=== PATIENT | male | born 1985 ===

== ENCOUNTER 2018-06-13 01:10 | Emergency (ER) | payer OTHER, MEDICAID, SELFPAY ==
[2018-06-13 01:10] VITALS: BP 135/88; PULSE 114; RESP 20; TEMP 36.7; O2SAT 99
--- NOTE | 2018-06-13 01:11 | ED.PSYCH ---
HPI - Psych <Jones Lamas DO - Last Filed: 06/13/18 18:15> General Chief Complaint: Psychiatric Symptoms Stated Complaint: SI Time Seen by Provider: 06/13/18 01:11 Source: patient and police Mode of arrival: other (Police) Limitations: no limitations History of Present Illness HPI Narrative: Patient is a 33-year-old male who arrived under the care of the [facility] after they were dispatched to his home to to comments that he was making via text to his ex-girlfriend. The marketing officer told me that it was his ex-girlfriend was the 1 who called 911. Liv stated that when they arrived they found the patient on the floor with puking his young. They also found a belt that was rig to a piece of furniture apparently to be used as a noose. He did admit to drinking 12 beers and smoking marijuana today. He also stated that yesterday he found out that his best friend was killed about a month ago. He also stated that his girlfriend recently broke up with him. He has had and suicidal ideations and depression for a long time he is not currently on any medications. He is not currently under the care of any primary doctor or mental health provider. He has been admitted to the hospital in the past for suicidal ideation. He came voluntarily. Related Data Home Medications Medication Instructions Recorded Confirmed No Known Home Medications 06/13/18 06/13/18 Allergies Allergy/AdvReac Type Severity Reaction Status Date / Time No Known Drug Allergies Allergy Verified 06/13/18 07:39 Review of Systems <DO Saad Mukherjee Last Filed: 06/13/18 18:15> Constitutional Denies headache(s) ENT Ears, Nose, Mouth, and Throat: Denies headache(s) Cardiovascular Denies chest pain and Denies dyspnea Respiratory Denies dyspnea Gastrointestinal Gastrointestinal: Denies abdominal pain Musculoskeletal Denies myalgias and Denies arthralgias Integumentary/Breasts Reports rash Neurologic Reports behavioral changes and Denies headache(s) Psychiatric Denies anxiety, Reports behavioral changes, Reports depression, Denies irritability, Denies homicidal ideation and Reports suicidal ideation Hematologic/Lymphatic Comments: Not on anticoagulation PFSH <DO Saad Mukherjee Last Filed: 06/13/18 18:15> Medical History Depression (Acute) Social History Smoking Status: Never smoker Social History Smoking Status: Never smoker Exam <DO Saad Mukherjee Last Filed: 06/13/18 18:15> Initial Vital Signs Initial Vital Signs: Vital Signs Temperature 98.0 F 06/13/18 01:10 Pulse Rate 114 H 06/13/18 01:10 Respiratory Rate 20 06/13/18 01:10 Blood Pressure 135/88 06/13/18 01:10 Pulse Oximetry 99 06/13/18 01:10 Const General: cooperative, healthy appearing, comfortable, well developed, well groomed and No acute distress HENMT Head: normal to inspection, normocephalic and atraumatic Resp Effort & Inspection: normal respiratory effort Auscultation: clear to auscultation bilaterally Cardio Rate: tachycardic Rhythm: regular rhythm Pulses: radial pulses present Skin Other: Patient with a rash located on his left side and abdomen and back. Well demarcated. No blisters. Also has well-healed scars to his right forearm consistent with prior cutting at times. Neuro General: alert, awake and oriented x3 Extrem General: normal to inspection and capillary refill normal Psych Appearance: grossly normal, well kempt and not disheveled Speech and Movement: speech and movement normal Mood: dysthymic mood Affect: sad Attitude: cooperative Thought Process: normal <Jessie Smith DO - Last Filed: 06/13/18 16:44> Initial Vital Signs Initial Vital Signs: Vital Signs Temperature 98.0 F 06/13/18 01:10 Pulse Rate 114 H 06/13/18 01:10 Respiratory Rate 20 06/13/18 01:10 Blood Pressure 135/88 06/13/18 01:10 Pulse Oximetry 99 06/13/18 01:10 Course <Jones aLmas DO - Last Filed: 06/13/18 18:15> Orders Ordered: ED Orders 06/13/18 06:29 Consult to Supervisor Meter Rep[employer] Stat Vital Signs - 8 hr 06/13/18 10:48 06/13/18 15:29 Temperature 98.6 F 98.4 F Pulse Rate 98 H 94 H Respiratory Rate 16 17 Blood Pressure [Right Arm] 132/84 122/75 Pulse Oximetry 99 97 <DO Saad Talamantes Last Filed: 06/13/18 16:44> Orders Ordered: ED Orders 06/13/18 06:29 Consult to Supervisor Meter Rep[employer] Stat Vital Signs - 8 hr 06/13/18 10:48 06/13/18 15:29 Temperature 98.6 F 98.4 F Pulse Rate 98 H 94 H Respiratory Rate 16 17 Blood Pressure [Right Arm] 132/84 122/75 Pulse Oximetry 99 97 MDM - Psych <Jones Lamas DO - Last Filed: 06/13/18 18:15> Lab Data Attestation: I reviewed the patient's lab results. Result diagrams: 06/13/18 01:34 06/13/18 01:34 Lab Results 06/13/18 06/13/18 06/13/18 Range/Units 01:25 01:34 01:34 WBC 5.1 (4.5-11.0) X10^3/uL RBC 5.19 (4.5-5.9) X10^6/uL Hgb 15.9 (13.5-17.5) g/dL Hct 46.4 (41-53) % MCV 89.4 (80-100) fL MCH 30.6 (26-34) PG MCHC 34.2 (30-36) % RDW 13.1 (11.6-14.8) % Plt Count 191 (150-400) X10^3/uL Neut % (Auto) 67.9 (50-75) % Lymph % (Auto) 21.1 L (25-40) % [place] % (Auto) 9.2 (3-14) % Eos % (Auto) 0.8 L (2-4) % Baso % (Auto) 1.0 (0-2) % Neut # (Auto) 3400 (0355-4984) /uL Lymph # (Auto) 1100 (1817-7834) /uL [place] # (Auto) 500 (0-900) /uL Eos # (Auto) 0 (0-450) /uL Baso # (Auto) 100 (0-100) /uL Sodium 142 (137-145) mmol/L Potassium 3.7 (3.4-5.1) mmol/L Chloride 103 (98-107) mmol/L Carbon Dioxide 25 (22-32) mmol/L BUN 9 (9-20) mg/dL Creatinine 0.90 (0.66-1.25) mg/dL Estimated GFR > 60.0 (>60) mL/min BUN/Creatinine Ratio 10.0 (6-22) Glucose 102 H (70-100) mg/dL Calcium 9.3 (8.4-10.2) mg/dL Total Bilirubin 0.4 (0.2-1.3) mg/dL AST 29 (17-59) IU/L ALT 49 (21-72) IU/L Alkaline Phosphatase 62 (38-126) U/L Total Protein 7.9 (6.3-8.2) g/dL Albumin 5.0 (3.5-5.0) g/dL Globulin 2.9 (1.7-4.1) g/dL Albumin/Globulin Ratio 1.7 (1.0-2.8) Lipase 101 (23-300) U/L TSH (0.47-4.68) uIU/mL Salicylates < 1.0 (<20) mg/dL Urine Opiates Screen Negative (Negative) Ur Oxycodone Screen Negative (Negative) Urine Methadone Screen Negative (Negative) Acetaminophen < 10 L (10-30) ug/mL Ur Barbiturates Screen Negative (Negative) U Tricyclic Antidepress Negative (Negative) Ur Phencyclidine Scrn Negative (Negative) Ur Amphetamines Screen Negative (Negative) U Methamphetamines Scrn Negative (Negative) Ur MDMA Scrn (Ecstasy) Negative (Negative) U Benzodiazepines Scrn Negative (Negative) Urine Cocaine Screen Negative (Negative) U Marijuana (THC) Screen Positive H (Negative) Ethyl Alcohol 100 mg/dL 06/13/18 Range/Units 01:34 WBC (4.5-11.0) X10^3/uL RBC (4.5-5.9) X10^6/uL Hgb (13.5-17.5) g/dL Hct (41-53) % MCV (80-100) fL MCH (26-34) PG MCHC (30-36) % RDW (11.6-14.8) % Plt Count (150-400) X10^3/uL Neut % (Auto) (50-75) % Lymph % (Auto) (25-40) % [place] % (Auto) (3-14) % Eos % (Auto) (2-4) % Baso % (Auto) (0-2) % Neut # (Auto) (8778-5530) /uL Lymph # (Auto) (3026-3998) /uL [place] # (Auto) (0-900) /uL Eos # (Auto) (0-450) /uL Baso # (Auto) (0-100) /uL Sodium (137-145) mmol/L Potassium (3.4-5.1) mmol/L Chloride (98-107) mmol/L Carbon Dioxide (22-32) mmol/L BUN (9-20) mg/dL Creatinine (0.66-1.25) mg/dL Estimated GFR (>60) mL/min BUN/Creatinine Ratio (6-22) Glucose (70-100) mg/dL Calcium (8.4-10.2) mg/dL Total Bilirubin (0.2-1.3) mg/dL AST (17-59) IU/L ALT (21-72) IU/L Alkaline Phosphatase (38-126) U/L Total Protein (6.3-8.2) g/dL Albumin (3.5-5.0) g/dL Globulin (1.7-4.1) g/dL Albumin/Globulin Ratio (1.0-2.8) Lipase (23-300) U/L TSH 2.16 (0.47-4.68) uIU/mL Salicylates (<20) mg/dL Urine Opiates Screen (Negative) Ur Oxycodone Screen (Negative) Urine Methadone Screen (Negative) Acetaminophen (10-30) ug/mL Ur Barbiturates Screen (Negative) U Tricyclic Antidepress (Negative) Ur Phencyclidine Scrn (Negative) Ur Amphetamines Screen (Negative) U Methamphetamines Scrn (Negative) Ur MDMA Scrn (Ecstasy) (Negative) U Benzodiazepines Scrn (Negative) Urine Cocaine Screen (Negative) U Marijuana (THC) Screen (Negative) Ethyl Alcohol mg/dL Point of Care Testing Breathalizer 0.051 MDM Narrative Medical decision making narrative: Patient breathalyzer at 230 a.m. was 0.5. Patient is medically cleared. He is voluntary. Care turned over to day provider at change of shift <Jessie Smith DO - Last Filed: 06/13/18 16:44> Lab Data Attestation: I reviewed the patient's lab results. Lab Results 06/13/18 06/13/18 06/13/18 Range/Units 01:25 01:34 01:34 WBC 5.1 (4.5-11.0) X10^3/uL RBC 5.19 (4.5-5.9) X10^6/uL Hgb 15.9 (13.5-17.5) g/dL Hct 46.4 (41-53) % MCV 89.4 (80-100) fL MCH 30.6 (26-34) PG MCHC 34.2 (30-36) % RDW 13.1 (11.6-14.8) % Plt Count 191 (150-400) X10^3/uL Neut % (Auto) 67.9 (50-75) % Lymph % (Auto) 21.1 L (25-40) % [place] % (Auto) 9.2 (3-14) % Eos % (Auto) 0.8 L (2-4) % Baso % (Auto) 1.0 (0-2) % Neut # (Auto) 3400 (6474-8891) /uL Lymph # (Auto) 1100 (5224-5131) /uL [place] # (Auto) 500 (0-900) /uL Eos # (Auto) 0 (0-450) /uL Baso # (Auto) 100 (0-100) /uL Sodium 142 (137-145) mmol/L Potassium 3.7 (3.4-5.1) mmol/L Chloride 103 (98-107) mmol/L Carbon Dioxide 25 (22-32) mmol/L BUN 9 (9-20) mg/dL Creatinine 0.90 (0.66-1.25) mg/dL Estimated GFR > 60.0 (>60) mL/min BUN/Creatinine Ratio 10.0 (6-22) Glucose 102 H (70-100) mg/dL Calcium 9.3 (8.4-10.2) mg/dL Total Bilirubin 0.4 (0.2-1.3) mg/dL AST 29 (17-59) IU/L ALT 49 (21-72) IU/L Alkaline Phosphatase 62 (38-126) U/L Total Protein 7.9 (6.3-8.2) g/dL Albumin 5.0 (3.5-5.0) g/dL Globulin 2.9 (1.7-4.1) g/dL Albumin/Globulin Ratio 1.7 (1.0-2.8) Lipase 101 (23-300) U/L TSH (0.47-4.68) uIU/mL Salicylates < 1.0 (<20) mg/dL Urine Opiates Screen Negative (Negative) Ur Oxycodone Screen Negative (Negative) Urine Methadone Screen Negative (Negative) Acetaminophen < 10 L (10-30) ug/mL Ur Barbiturates Screen Negative (Negative) U Tricyclic Antidepress Negative (Negative) Ur Phencyclidine Scrn Negative (Negative) Ur Amphetamines Screen Negative (Negative) U Methamphetamines Scrn Negative (Negative) Ur MDMA Scrn (Ecstasy) Negative (Negative) U Benzodiazepines Scrn Negative (Negative) Urine Cocaine Screen Negative (Negative) U Marijuana (THC) Screen Positive H (Negative) Ethyl Alcohol 100 mg/dL 06/13/18 Range/Units 01:34 WBC (4.5-11.0) X10^3/uL RBC (4.5-5.9) X10^6/uL Hgb (13.5-17.5) g/dL Hct (41-53) % MCV (80-100) fL MCH (26-34) PG MCHC (30-36) % RDW (11.6-14.8) % Plt Count (150-400) X10^3/uL Neut % (Auto) (50-75) % Lymph % (Auto) (25-40) % [place] % (Auto) (3-14) % Eos % (Auto) (2-4) % Baso % (Auto) (0-2) % Neut # (Auto) (7872-8318) /uL Lymph # (Auto) (5896-1998) /uL [place] # (Auto) (0-900) /uL Eos # (Auto) (0-450) /uL Baso # (Auto) (0-100) /uL Sodium (137-145) mmol/L Potassium (3.4-5.1) mmol/L Chloride (98-107) mmol/L Carbon Dioxide (22-32) mmol/L BUN (9-20) mg/dL Creatinine (0.66-1.25) mg/dL Estimated GFR (>60) mL/min BUN/Creatinine Ratio (6-22) Glucose (70-100) mg/dL Calcium (8.4-10.2) mg/dL Total Bilirubin (0.2-1.3) mg/dL AST (17-59) IU/L ALT (21-72) IU/L Alkaline Phosphatase (38-126) U/L Total Protein (6.3-8.2) g/dL Albumin (3.5-5.0) g/dL Globulin (1.7-4.1) g/dL Albumin/Globulin Ratio (1.0-2.8) Lipase (23-300) U/L TSH 2.16 (0.47-4.68) uIU/mL Salicylates (<20) mg/dL Urine Opiates Screen (Negative) Ur Oxycodone Screen (Negative) Urine Methadone Screen (Negative) Acetaminophen (10-30) ug/mL Ur Barbiturates Screen (Negative) U Tricyclic Antidepress (Negative) Ur Phencyclidine Scrn (Negative) Ur Amphetamines Screen (Negative) U Methamphetamines Scrn (Negative) Ur MDMA Scrn (Ecstasy) (Negative) U Benzodiazepines Scrn (Negative) Urine Cocaine Screen (Negative) U Marijuana (THC) Screen (Negative) Ethyl Alcohol mg/dL Point of Care Testing Breathalizer 0.051 MDM Narrative Medical decision making narrative: Patient signed out to myself. Voluntary at this time. Patient does not take any daily medications. Patient is still feeling depressed and unsafe in terms of suicidal ideation. Multiple facilities contacted and either no beds available or patient insurance is not accepted. Recheck while patient is eating lunch, he is feeling similar and continues to be voluntary, calm and cooperative with staff. Discussed that we are continuing to search for placement. Patient updated that [facility] has bed available and social contacted to facilitate emergency authorization from insurance. Patient accepted at [facility], Dr. Plasencia is accepting physician. Plan for transport via BLS. Patient agreeable and has been very pleasant throughout stay in the ER. Discharge Plan Departure Patient Disposition: Xfer Psychiatric Hosp Clinical Impression: Suicidal ideation, Depression Discharge Date/Time: 06/13/18 16:49 Interventions: ED Discharge Assessment Last Done: 06/13/18 16:40 Referrals: Maco Harris MD [Primary Care Provider] -
--- NOTE | 2018-06-13 01:21 | PC.NURSE ---
1 Wallet, 1 cell phone, shirt, underwear, pants, shoes, and jacket place in 2 pt belonging bags labeled and locked in pt belonging cabinet.
[2018-06-13 01:40] LABS: Urine Amphetamines Negative (Negative); Urine Barbiturates Negative (Negative); Urine Benzodiazepines Negative (Negative); Urine Cocaine Negative (Negative); Urine MDMA Negative (Negative); Urine Methadone Negative (Negative); Urine Methamphetamines Negative (Negative); Urine Morphine/Opi cutoff 2000 Negative (Negative); Urine Oxycodone Negative (Negative); Urine Phencyclidine Negative (Negative); Urine Tetrahydrocannabinol Positive (Negative); Urine Tricyclic Antidepressant Negative (Negative)
[2018-06-13 01:41] LABS: Add Manual Diff / Slide Review NO; Basophils Absolute Auto 100 /uL (0-100); Eosinophils Absolute Auto 0 /uL (0-450); Eosinophils Percent Auto 0.8 % (2-4); Hematocrit 46.4 % (41-53); Hemoglobin 15.9 g/dL (13.5-17.5); Lymphocytes Absolute Auto 1100 /uL (1100-4500); Lymphocytes Percent Auto 21.1 % (25-40); Mean Corpuscular HGB Conc 34.2 % (30-36); Mean Corpuscular Hemoglobin 30.6 PG (26-34); Mean Corpuscular Volume 89.4 fL (80-100); Monocytes Absolute Auto 500 /uL (0-900); Monocytes Percent Auto 9.2 % (3-14); Neutrophils Absolute Auto 3400 /uL (1500-7000); Neutrophils Percent Auto 67.9 % (50-75); Platelet Count 191 X10^3/uL (150-400); Red Blood Cell Count 5.19 X10^6/uL (4.5-5.9); Red Cell Distribution Width 13.1 % (11.6-14.8); White Blood Cell Count 5.1 X10^3/uL (4.5-11.0)
[2018-06-13 01:53] LABS: Acetaminophen < 10 ug/mL (10-30); Alanine Aminotransferase 49 IU/L (21-72); Albumin Globulin Ratio 1.7 (1.0-2.8); Alkaline Phosphatase 62 U/L (38-126); Aspartate Aminotransferase 29 IU/L (17-59); Bilirubin Total 0.4 mg/dL (0.2-1.3); Blood Urea Nitrogen 9 mg/dL (9-20); Calcium 9.3 mg/dL (8.4-10.2); Carbon Dioxide 25 mmol/L (22-32); Chloride 103 mmol/L (98-107); Estimated Glomerular Filt Rate > 60.0 mL/min (>60); Ethanol (ETOH) 100 mg/dL; Globulin 2.9 g/dL (1.7-4.1); Glucose 102 mg/dL (70-100); HEMOLYSIS < 15 (0-50); Lipase 101 U/L (23-300); Potassium 3.7 mmol/L (3.4-5.1); Salicylate < 1.0 mg/dL (<20); Sodium 142 mmol/L (137-145); Total Protein 7.9 g/dL (6.3-8.2)
[2018-06-13 01:59] VITALS: BP 125/79; PULSE 98; RESP 16; TEMP 36.5; O2SAT 99
[2018-06-13 02:31] LABS: Thyroid Stimulating Hormone 2.16 uIU/mL (0.47-4.68)
--- NOTE | 2018-06-13 03:39 | PC.NURSE ---
[facility] has a bed available for a voluntary patient. patients chart is being reviewed to see if patient meets criteria to be accepted. provider aware and no new orders at this time.
[2018-06-13 06:55] VITALS: BP 131/92; PULSE 84; RESP 16; TEMP 36.4; O2SAT 99
--- NOTE | 2018-06-13 07:36 | PC.NURSE ---
Safety interventions initiated at time of admission and continue now. Pt continues to be alert, oriented, cooperative. Denies any needs. Taking po fluids.
--- NOTE | 2018-06-13 08:36 | PC.NURSE ---
Brought breakfast tray to patient and patient now sitting up eating breakfast
--- NOTE | 2018-06-13 08:47 | PC.NURSE ---
Spoke w/ Sara who suggested calling [facility] ([phone])
--- NOTE | 2018-06-13 09:14 | PC.NURSE ---
Resting w/ eyes closed. No acute distress at this time. Continues to be agreeable to voluntary placement.
--- NOTE | 2018-06-13 10:05 | PC.NURSE ---
pt sleeping and calm
--- NOTE | 2018-06-13 10:18 | PC.NURSE ---
[facility] unable to accept pt as per their report, pt is not being treated for, has no medications for suicidal thoughts.
[2018-06-13 10:48] VITALS: BP 132/84; PULSE 98; RESP 16; TEMP 37; O2SAT 99
--- NOTE | 2018-06-13 11:31 | PC.NURSE ---
ptcooperate with RN talking in phone,calm
--- NOTE | 2018-06-13 12:17 | PC.NURSE ---
pt asked to use restroom, lunch has been order, rested some apples juice okay with the nurse
--- NOTE | 2018-06-13 12:40 | PC.NURSE ---
pt is sitting on bed
--- NOTE | 2018-06-13 13:11 | PC.NURSE ---
Awaiting response from [facility] for emergent insurance authorization.
--- NOTE | 2018-06-13 13:14 | PC.NURSE ---
reading magazine,pleasant and cooperative
--- NOTE | 2018-06-13 14:26 | PC.NURSE ---
Phone call Made to Orin at [facility]. They are aware that patient has been approved for 24 hour authorization. They are going to call their marketing development manager and will return call to me.
--- NOTE | 2018-06-13 14:45 | PC.NURSE ---
PHOTOGRAPHIC EQUIPMENT ASSEMBLER/SAMANTHA Note: Pt. is calm and sleeping. I introduced myself to Pt. Pt. stated okay.
--- NOTE | 2018-06-13 15:10 | PC.NURSE ---
Accepted to [facility] w/ Dr. Plasencia accepting. Pt agreed to go to [facility]. No acute distress. Voluntary admission.
--- NOTE | 2018-06-13 15:17 | PC.NURSE ---
CORRECTION WORKER/FISH CLEANER Note: Pt. is sleeping. He repositioned independently onto belly down. Pt. sleepign/breathing.
[2018-06-13 15:29] VITALS: BP 122/75; PULSE 94; RESP 17; TEMP 36.9; O2SAT 97
--- NOTE | 2018-06-13 16:00 | PC.NURSE ---
Patient signed form from [facility] for admission. Informed pt of transfer and timing for ambulance. Pt is resting on mattress on floor. Reading magazines. Declines offer for food, drink, and blankets at this time.
--- NOTE | 2018-06-13 16:18 | PC.NURSE ---
Patient requests shower before ambulance transport. Pt escorted to shower with CIGAR MAKER in restroom. Pt provided with shampoo, tooth brush, toothpaste, and new scrubs. Now back in room. CIGAR MAKER remains at bedside.
--- NOTE | 2018-06-13 16:20 | PC.NURSE ---
MEDICAID BILLING SPECIALIST/[facility] [place] [place] NO[place]: Pt. had a showered and brushed teeth per Pt. request. RN notified and assisted. Pt. calm and polite. Pt. back in room.
== END 2018-06-13 16:49 ==
PROVIDERS: Emergency Medicine; Emergency Provider Emergency Medicine; PCP Internal Medicine
DX: R45.851 Suicidal ideations (principal); F32.9 Major depressive disorder, single episode, unspecified
CPT/HCPCS: 36415; 80053; 80305; 80320; 80329; 82075; 83690; 84443; 85025; 99283; 99285; 99291; 99292; G0480